=== PATIENT | female | born 1995 ===

== ENCOUNTER 2019-07-11 14:51 | Emergency (ER) | payer BC ==
--- NOTE | 2019-07-11 15:33 | UC ---
Throat Pain/Nasal Daniel HPI - HPI Summary HPI Summary: Pt presents to with 3 days of progressive sore throat and fevers. T max 101.3 last night. 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 Pt with painful swallowing. no drooling. + water no ear pain, sinus congestion. No rash. no cough, sob. Pt's roommate with similar sx since Tuesday. Pt states had mono last year medications reviewed not - History of Current Complaint Chief Complaint: UCRespiratory Stated Complaint: THROAT PAIN Time Seen by Provider: 07/11/19 15:18 Hx Obtained From: Patient Hx Last Menstrual Period: over 1 month ago ?: No Onset/Duration: Gradual Onset Severity: Moderate Pain Intensity: 6 Pain Scale Used: 0-10 Numeric - Allergies/Home Medications Allergies/Adverse Reactions: Allergies Allergy/AdvReac Type Severity Reaction Status Date / Time No Known Allergies Allergy Verified 07/11/19 14:59 Home Medications: Home Medications Ibuprofen 400 mg PO Q6HR PRN 07/11/19 [History Confirmed 07/11/19] Propranolol HCl 20 mg PO BID 07/11/19 [History Confirmed 07/11/19] Ziprasidone HCl [Geodon] 40 mg PO BID 07/11/19 [History Confirmed 07/11/19] clonazePAM TAB(*) [Klonopin TAB(*)] 0.5 mg PO QPM PRN 07/11/19 [History Confirmed 07/11/19] lamoTRIgine TAB(*) [LaMICtal TAB(*)] 200 mg PO DAILY 07/11/19 [History Confirmed 07/11/19] PMH/Surg Hx/FS Hx/Imm Hx Previously Healthy: Yes Psychological History: Anxiety, Depression - Surgical History Surgical History: Yes Surgery Procedure, Year, and Place: facial reconstruction at 18 y/o - Family History Known Family History: Positive: Non-Contributory - Social History Occupation: Employed Part-time, Student Lives: Dormitory/Roommates Alcohol Use: Occasionally Substance Use Type: None Smoking Status (MU): Never Smoked Tobacco Review of Systems All Other Systems Reviewed And Are Negative: Yes Constitutional: Positive: Fever, Fatigue Skin: Positive: Negative Eyes: Positive: Negative ENT: Positive: Epistaxis, Sore Throat. Negative: Ear Ache, Nasal Discharge, Sinus Congestion, Sinus Pain/Tenderness Respiratory: Positive: Negative Cardiovascular: Positive: Negative Gastrointestinal: Positive: Negative Genitourinary: Positive: Negative Physical Exam - Summary Physical Exam Summary: Vital Signs Reviewed: Yes A+Ox3, no distress,resting comfortable speaking full,e asy sentences Eyes: Conjunctiva Clear, DEE. EOM intact and full ENT: Hearing grossly normal TM x 2 clear, turbinates wnl, mmoist, uvula midline , no exudate, + erythema no lesions, uvula midline, no drooling, no edema Neck: Positive: Supple. no LA Respiratory: Positive: No respiratory distress, No accessory muscle use + CTA throughout no w/r Cardiovascular: RRR nl s1, s2 no m/r CBT <2 sec abd soft + BS nt/nd no guarding, no distension Musculoskeletal Exam: YU x 4 without difficulty Strength Intact, ROM Intact Neurological: Positive: Alert, + sensation throughout Psychological: Positive: Normal Response To Family Skin: Positive: no rash, no ecchymosis Triage Information Reviewed: Yes Vital Signs: Initial Vital Signs Temp 99.5 F 07/11/19 15:01 Pulse 66 07/11/19 15:01 Resp 18 07/11/19 15:01 BP 103/73 07/11/19 15:01 Pulse Ox 100 07/11/19 15:01 Re-Evaluation - Re-Evaluation First Eval Re-Evaluation Time: 16:07 Change: Improved - Pt improved following viscous lidocaine - will Rx for home Throat Pain/Nasal Course/Dx - Course Course Of Treatment: Pt presents to with 3 days progressive sore throat. 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 oropharynx will avoid Pred - pt [facility] dx, has not taken before, no edema concern on exam will trial viscous lidocaine -pt has taken before work note for Fri secretion precaution - agreement and understanding of plan pt declined offer to talk to parents - Differential Dx/Diagnosis Provider Diagnosis: Pharyngitis Discharge ED - Sign-Out/Discharge Documenting (check all that apply): Patient Departure All imaging exams completed and their final reports reviewed: No Studies - Discharge Plan Condition: Stable Disposition: HOME Prescriptions: Lidocaine 2% VISCOUS* [Xylocaine 2% Viscous*] 15 ml SWISH SWAL Q4H PRN #1 btl PRN Reason: Sore Throat Patient Education Materials: Pharyngitis (ED) Forms: *Work Release Referrals: No Primary Care Phys,NOPCP [Primary Care Provider] - [facility] [Outside] Additional Instructions: - Okay to alternate ibuprofen (Advil, Motrin) and Tylenol every 3 hours for pain. Take with food. Do NOT take for more than 4-5 days - Okay to gargle and spit every 4 hours as needed for pain. okay to gargle with numing medication as prescribed. - Stay well hydrated - frequent sips of cold fluids will be soothing to your throat (popsicles, jello, ice cream, ice water). Avoid excess caffeine until your symptoms have resolved. - Do not share eating, drinking utensils. Throw out your toothbrush when your symptoms resolved -Throat infections are spread by oral secretions - do not share eating or drinking utensils until you symptoms are resolved. Clean items that may get your secretions such as cell phones, ipads, computer mouse, television remotes - get plenty of restful sleep - Contact the [facility] [place] for a recheck of your symptoms persist more than 7 days. If you develop difficulty swallowing, drooling, uncontrolled fevers or other concerns it is recommended you go to the emergency department for further evaluation and treatment - Billing Disposition and Condition Condition: STABLE Disposition: Home
[2019-07-11] MEDS ORDERED: Lidocaine 2% VISCOUS* 15 ML UDC PO ONE (15:43)
== END 2019-07-11 16:15 | disposition home or self-care (01) ==
LOC: UCEAST 14:51
DX: J02.9 Acute pharyngitis, unspecified (principal); F41.9 Anxiety disorder, unspecified; F32.9 Major depressive disorder, single episode, unspecified
CPT/HCPCS: 87651; 99202; G0463